=== PATIENT | male | born 1985 | race Native Hawaiian/Other Pacific Islander ===

== ENCOUNTER 2016-11-30 01:44 | Emergency (ER) | payer OTHER | END 2016-11-30 02:40 | disposition home or self-care (01) | LOC: ED 01:44 | DX: R51 Headache (principal); K08.89 Other specified disorders of teeth and supporting structures; H92.09 Otalgia, unspecified ear | CPT/HCPCS: 99281 ==

== ENCOUNTER 2017-11-08 18:47 | Emergency (ER) | payer OTHER ==
[2017-11-08 20:45] VITALS: BP 130/65; TEMP 97.7
== END 2017-11-08 20:46 | disposition home or self-care (01) ==
LOC: ED 18:47
DX: R30.0 Dysuria (principal)
CPT/HCPCS: 87088; 99281

== ENCOUNTER 2017-11-08 20:52 | Emergency (ER) | payer OTHER ==
[~2017-11-08] VITALS: Ht 180.3 cm; Wt 77.1 kg
[2017-11-08 21:07] VITALS: BP 135/70; TEMP 98.5
== END 2017-11-08 22:31 | disposition home or self-care (01) ==
LOC: ED 20:52
DX: N34.2 Other urethritis (principal)
CPT/HCPCS: 81000; 87490; 87590; 96372; 99283; J0696